=== PATIENT | male | born 1945 | race Caucasian/White ===

== ENCOUNTER 2024-06-19 11:23 | Emergency (ER) | payer MEDICARE ==
[2024-06-19 12:19] LABS: BASOPHILS ABSOLUTE AUTO 0.03 K/uL (0.00-0.10); BASOPHILS PERCENT AUTO 0.6 % (0.1-1.3); EOSINOPHILS ABSOLUTE AUTO 0.16 K/uL (0.00-0.40); EOSINOPHILS PERCENT AUTO 3.2 % (0.0-5.4); HEMATOCRIT 34.3 % (38.4-49.7); HEMOGLOBIN 10.8 g/dL (12.9-16.9); IMMATURE GRAN PERCENT AUTO 0.2 % (0.0-0.7); LYMPHOCYTES ABSOLUTE AUTO 0.59 K/uL (0.8-3.3); LYMPHOCYTES PERCENT AUTO 11.7 % (11.4-47.7); MEAN CORPUSCULAR HEMOGLOBIN 31.1 pg (31.6-35.5); MEAN CORPUSCULAR HGB CONC 31.5 g/dL (31.6-35.5); MEAN CORPUSCULAR VOLUME 98.8 fL (81.4-99.0); MONOCYTES ABSOLUTE AUTO 0.43 K/uL (0.20-0.90); MONOCYTES PERCENT AUTO 8.5 % (3.3-12.6); NEUTROPHILS ABSOLUTE AUTO 3.84 K/uL (1.0-7.6); NEUTROPHILS PERCENT AUTO 75.8 % (40.0-78.1); PLATELET COUNT,PLT 160 K/uL (130-375); RED BLOOD CELL COUNT 3.47 M/uL (4.14-5.76); WHITE BLOOD CELL COUNT,WBC 5.1 K/uL (3.2-11.0)
[2024-06-19 12:22] LABS: IMMATURE GRAN ABSOLUTE AUTO 0.01 K/uL (0.00-0.23)
[2024-06-19 12:41] LABS: ALANINE AMINOTRANSFERASE,ALT 17 U/L (12-78); ALBUMIN 2.8 g/dL (3.4-5.0); ALKALINE PHOSPHATASE 82 U/L (46-116); ASPARTATE AMNIOTRANSFERASE,AST 18 U/L (15-37); BILIRUBIN TOTAL 0.4 mg/dL (0.2-1.0); BLOOD UREA NITROGEN,BUN 13 mg/dL (7-18); CALCIUM 8.7 mg/dL (8.5-10.1); CARBON DIOXIDE,CO2 43 mmol/L (21-32); CHLORIDE,CL 99 mmol/L (100-108); CREATININE 0.7 mg/dL (0.8-1.3); EST CRCL DRUG DOSING (CG) 89.28 mL/min; ESTIMATED GFR 95 mL/min (>60); GLUCOSE RANDOM 140 mg/dL (74-106); POTASSIUM,K 4.1 mmol/L (3.6-5.2); PROTEIN TOTAL,TP 5.5 g/dL (6.4-8.2); SODIUM,NA 139 mmol/L (140-148)
[2024-06-19 12:42] LABS: ANION GAP 1.1 mmol/L (5.0-14.0)
== END 2024-06-19 16:04 ==
LOC: JP.ED 11:23
DX: J44.9 Chronic obstructive pulmonary disease, unspecified (principal); Z91.018 Allergy to other foods; Z79.899 Other long term (current) drug therapy; Z87.891 Personal history of nicotine dependence
CPT/HCPCS: 36415; 71046; 71046-26; 71250; 71250-26; 80053; 83605; 85025; 99284